=== PATIENT | female | born 1960 | race Caucasian/White ===

== ENCOUNTER 2020-03-14 07:22 | Outpatient (CLI) | payer OTHER, SELFPAY ==
--- NOTE | 2020-03-14 07:34 | MM_ITS ---
WS: [id number] SCREENING DIGITAL MAMMOGRAM WITH CAD HISTORY: SCREENING COMPARISON: 05/20/2019, 01/29/2019, 01/18/2015 Bilateral CC and MLO views submitted. Computer aided detection analyzed. Breast composition: The breasts are heterogeneously dense, which may obscure small masses. 10 mm asym metry in the medial LEFT breast in the CC projection only. Otherwise the asymmetries are stable. No c alcification. LEFT breast: Spot compression views (CC ). True ML. Ultrasound to follow if abnormality persists. MM/[place] [id number] IMPRESSION: BI-RADS: 0-Incomplete: Need additional imaging evaluation FOLLOW UP: Need Additional Imaging
== END 2020-03-14 07:23 | disposition home or self-care (01) ==
LOC: RADSHAW 07:28
PROVIDERS: PCP Internal Medicine; Visit Provider Nurse Practitioner Women's Health
DX: Z12.31 Encounter for screening mammogram for malignant neoplasm of breast (principal); N64.89 Other specified disorders of breast
CPT/HCPCS: 77067

== ENCOUNTER 2020-03-21 14:06 | Outpatient (CLI) | payer OTHER, SELFPAY ==
--- NOTE | 2020-03-21 14:30 | MM_ITS ---
WS: [id number] ADDITIONAL VIEWS LEFT MAMMOGRAM HISTORY: abnormal mammogram-- left breast COMPARISON: 03/14/2020, 05/20/2019, 01/29/2019 and 01/27/2018 Spot compression views LEFT breast in CC projection and true ML submitted. The asymmetry in the medial LEFT breast resolves with additional imaging and compression views. No ad ditional workup necessary. MM/[id number] IMPRESSION: BI-RADS: 2-Benign FOLLOW UP: 1 Year Follow-up
== END 2020-03-21 14:07 | disposition home or self-care (01) ==
LOC: RADSHAW 14:07
PROVIDERS: PCP Internal Medicine; Visit Provider Nurse Practitioner Women's Health
DX: R92.8 Other abnormal and inconclusive findings on diagnostic imaging of breast (principal)
CPT/HCPCS: 77065

== ENCOUNTER 2021-03-16 07:46 | Outpatient (CLI) | payer OTHER, SELFPAY ==
--- NOTE | 2021-03-16 08:00 | MM_ITS ---
WS: [id number] BILATERAL SCREENING DIGITAL MAMMOGRAM WITH CAD HISTORY: Z12.39 - Encounter for other screening for malignant neoplasm... COMPARISON: 03/14/2020, 03/21/2020 and 05/20/2019 Bilateral CC and MLO views submitted. Computer aided detection analyzed. Breast composition: The breasts are heterogeneously dense, which may obscure small masses. No suspici ous masses, microcalcifications or architectural distortion. Asymmetries bilaterally are stable. MM/[id number] IMPRESSION: BI-RADS: 2-Benign FOLLOW UP: 1 Year Follow-up
== END 2021-03-16 07:47 | disposition home or self-care (01) ==
LOC: RADSHAW 07:48
PROVIDERS: PCP Internal Medicine; Visit Provider Nurse Practitioner Women's Health
DX: Z12.31 Encounter for screening mammogram for malignant neoplasm of breast (principal)
CPT/HCPCS: 77067

== ENCOUNTER 2022-03-19 07:34 | Outpatient (CLI) | payer OTHER, SELFPAY ==
--- NOTE | 2022-03-19 07:54 | MM_ITS ---
WS: [email or web address] VIEWS: MLO and CC views both breasts. 3D digital tomosynthesis is also included in this exam. Comparison made with prior exam of 01/27/2018, 03/14/2020, and 03/16/2021.. Findings: There was no sign of mass, architectural distortion or suspicious calcification in either breast. Sta ble appearing nodular densities in both breasts.Heterogeneously dense MM/[place] [id number] Impression: BI-RADS: 2-Benign FOLLOW-UP: 1 Year Follow-up This mammogram was also analyzed by the Computer Aided Detection System R2 Imag e [employer] [place].
== END 2022-03-19 07:35 | disposition home or self-care (01) ==
LOC: RAD 07:35
PROVIDERS: PCP Internal Medicine; Visit Provider Nurse Practitioner Women's Health
DX: Z12.31 Encounter for screening mammogram for malignant neoplasm of breast (principal)
CPT/HCPCS: 77063; 77067

== ENCOUNTER 2023-03-20 07:49 | Outpatient (CLI) | payer OTHER, SELFPAY ==
--- NOTE | 2023-03-20 | MM_ITS ---
WS: [id number] BILATERAL SCREENING DIGITAL TOMOSYNTHESIS MAMMOGRAM WITH CAD HISTORY: SCREENING COMPARISON: 01/29/2019, 03/19/2022, 03/16/2021 and 03/14/2020 Bilateral CC and MLO views with tomosynthesis and synthetic mammography submitted. Computer aided det ection analyzed. Breast composition: The breasts are heterogeneously dense, which may obscure small masses. No suspici ous masses, microcalcifications or architectural distortion. Long-term stability of an asymmetry just central to the right nipple. IMPRESSION: MM/[place] [id number] BI-RADS: 2-Benign FOLLOW UP: 1 Year Follow-up
== END 2023-03-20 07:50 | disposition home or self-care (01) ==
PROVIDERS: PCP Internal Medicine; Visit Provider Nurse Practitioner Women's Health
DX: Z12.31 Encounter for screening mammogram for malignant neoplasm of breast (principal)
CPT/HCPCS: 77063; 77067

== ENCOUNTER 2024-03-23 08:21 | Outpatient (CLI) | payer MEDICARE, OTHER, SELFPAY ==
--- NOTE | 2024-03-23 08:27 | MM_ITS ---
WS: [id number] BILATERAL 3D TOMOSYNTHESIS DIGITAL SCREENING MAMMOGRAPHY WITH CAD CLINICAL INFORMATION: SCREEN HISTORY: Screening mammogram. No current complaints. COMPARISON: 2022 TECHNIQUE: Bilateral CC and MLO views. FINDINGS: The breasts are composed of heterogeneous fibroglandular density tissue, which can limit the detectio n of small underlying mass lesions. No suspicious mass, asymmetry, calcifications, or architectural d istortion. No evidence of malignancy. A few incidental punctate calcifications. MM/[place] [id number] IMPRESSION: BI-RADS: 2-Benign FOLLOW UP: 1 Year Follow-up Recommend return to annual screening mammography.
== END 2024-03-23 08:22 | disposition home or self-care (01) ==
LOC: RAD 08:21
PROVIDERS: PCP Internal Medicine; Visit Provider Nurse Practitioner Women's Health
DX: Z12.31 Encounter for screening mammogram for malignant neoplasm of breast (principal)
CPT/HCPCS: 77063; 77067

== ENCOUNTER → 2024-03-31 08:18 | Outpatient (BNVA) | payer MEDICARE, OTHER, SELFPAY | PROVIDERS: PCP Internal Medicine; Visit Provider Nurse Practitioner Family | DX: L57.0 Actinic keratosis (principal); L82.1 Other seborrheic keratosis; D18.01 Hemangioma of skin and subcutaneous tissue; L81.4 Other melanin hyperpigmentation | CPT/HCPCS: 17000; 99213 ==

== ENCOUNTER 2024-04-30 13:27 | Outpatient (CLI) | payer MEDICARE, OTHER, SELFPAY ==
--- NOTE | 2024-04-30 13:30 | XR_ITS ---
WS: [email or web address] DEXA (DUAL ENERGY X-RAY ABSORPTIOMETRY) Bone mineral density was performed using a [employer] machine. HISTORY: Z78.0 - Asymptomatic menopausal state COMPARISON: None available. Lumbar spine BMD (L1-L4): 1.090 g/cm2 T score: -0.8 Z score: 1.1 Total hip BMD: Left: 0.907 g/cm2. T score: -0.8 Z score: 0.6 Right: 0.898 g/cm2. T score: -0.9 Z score: 0.5 10 year probability of a major osteoporotic fracture is 14.1%. Compared to the prior study from 11/24/2018. Lumbar spine bone mineral density has increased by 0.5%. Bilateral hips bone mineral density has increased by 0.8%. XR/XR DEXA axial skeleton* [id number] IMPRESSION: NORMAL BONE MINERAL DENSITY based upon the WHO classification for females. No significant change in bone mineral density within the hips or lumbar spine s rick the prior study.
== END 2024-04-30 13:28 | disposition home or self-care (01) ==
LOC: RAD 13:28
PROVIDERS: PCP Internal Medicine; Visit Provider Nurse Practitioner Women's Health
DX: Z13.820 Encounter for screening for osteoporosis (principal); Z78.0 Asymptomatic menopausal state
CPT/HCPCS: 77080

== ENCOUNTER 2024-09-08 11:57 | Observation (INO) | payer MEDICARE, OTHER, SELFPAY ==
--- NOTE | 2024-09-01 10:08 | P.ANESASSM_ITS ---
Pre-Anesthetic Assessment Height/Weight: Height 1.57 m Operation Date: 09/08/24 08:45 Proposed Procedures p Anterior Repair Anterior Colporrhaphy(Not Applicable) - Saturnino Hurd MD s Posterior Repair Posterior Colporrhaphy(Not Applicable) - Saturnino Hurd MD s Sling Single Incision Sling 43900, 14537, 51694, N99.3, N81.10, N81.6(Not Applicable) - Saturnino Hurd MD Familial anesthetic complications: PONV (Severe) - TIVA Very sensitive to sedatives - had eyelid surgery and had to have three people help carry her into her house and didn't remember anything until the next day States she kept requesting pain meds after the eyelid surgery, but she wasn't in pain. She says she was just dopey. Was Beta Kevin taken within 24 hours: N/A Was Clonidine taken within 24 hours: N/A Social No alcohol and No tobacco Exam alert, oriented x 3, clear to auscultation bilaterally and regular rate & rhythm Airway Mallampati: Class I Dentition: full Metabolic Thyroid Disease Anesthetic Plan ASA status: 2 Anesthesia: General Risk of > 500 ml blood loss (7ml/kg in children): No Medications/Allergies Home Medications Medication Instructions Recorded Confirmed Last Taken Type epinephrine 0.3 mg/0.3 mL 0.3 mg IM Q10M PRN Anaphylaxis 01/05/20 09/01/24 Unknown History injection, auto-injector bupropion HCl 150 mg tablet,12 hr 150 mg PO DAILY 02/09/22 09/01/24 09/01/24 History sustained-release (Wellbutrin SR) cholecalciferol (vitamin D3) 125 125 mcg PO DAILY 02/09/22 09/01/24 09/01/24 H istory mcg (5,000 unit) capsule estradiol 1 mg tablet 0.5 mg PO DAILY 09/01/24 09/01/24 08/31/24 History levothyroxine 75 mcg tablet 88 mcg PO DAILY 09/01/24 09/01/24 09/01/24 History (Synthroid) Allergies Allergy/AdvReac Type Severity Reaction Status Date / Time erythromycin base Allergy vomiting Verified 09/01/24 09:37 [From Erythrocin] insect venom Allergy bees Verified 09/01/24 09:37 [facility] Anesthesia Medical History Lid retraction of left eye (~03/2024) Dr. Hays Hemorrhoid Hyperlipidemia No pertinent past medical history Neg HX: HTN, DM, DVT/PE PCP:Ramiro Hormone replacement therapy (postmenopausal) Hypothyroidism Hypercholesteremia Osteopenia Surgical History History of bladder surgery (~06/2022) combined with posterior repair. Performed at [facility] in [place], [place] by Dr. Gray History of eye surgery torn retina in both eyes-- uncertain of year H/O: hysterectomy In her 30's for prolapse. TVH. Ovaries surgically spared. Bladder was lifted at this time. Hx of LASIK Family History Grandmother Diabetes Paternal grandmother Family/Other Diabetes Paternal aunt Colon cancer Paternal aunt--- dx age unknown Mother Hyperlipidemia Hypertension Family history of thyroid problem Stroke Sister Family history of thyroid problem Grandfather Heart disease Maternal Denies family history of Ovarian cancer Breast cancer Uterine cancer Social History Smoking and tobacco/nicotine status: never used tobacco/nicotine Data Anesthesia Cardiac Studies: No Data to Display
[2024-09-01 10:29] LABS: Basophils % 0.7 %; Eosinophils # 0.2 10^3/uL (0.0-0.8); Eosinophils % 3.3 %; Lymphocytes # 1.8 10^3/uL (0.8-4.8); Lymphocytes % 30.7 %; Mean Corpuscular HGB Conc 32.8 g/dL (30-55); Mean Corpuscular Hemoglobin 30.5 pg (27-33); Mean Corpuscular Volume 93.1 fl (85-98); Mean Platelet Volume 9.3 fL (7.4-10.4); Monocytes # 0.6 10^3/uL (0.2-0.9); Monocytes % 10.8 %; Neutrophils # 3.17 10^3/uL (1.8-7.7); Neutrophils % 54.2 %; Nucleated Red Blood Cells % 0 %; Platelet Count 283 10^3/cmm (157-399); Red Blood Count 4.62 10^6/uL (3.85-5.65); White Blood Count 5.84 10^3/uL (3.29-11.43)
[2024-09-01 10:30] LABS: Bilirubin Urine Negative (Negative); Blood Urine Negative (Negative); Glucose Urine UA Negative (Normal); Ketones Urine Negative (Negative); Leukocyte Esterase Urine Negative (Negative); Nitrate Urine Negative (Negative); Protein Urine Negative (Negative); Specific Gravity, Urine 1.016 (1.005-1.030); Urine Appearance Clear (CLEAR); Urine Color Yellow (Yellow); Urobilinogen Urine 0.2 mg/dL (Negative); pH Urine 5.5 (5-7)
[2024-09-01 10:35] LABS: Add Urine Microscopic? YES; Bacteria Urine None Seen /hpf; Hyaline Casts Urine 0-4 /lpf; RBC Urine 0-2 /hpf (0-2); Squamous Epithelial Cell Urine 0-5 /hpf (0-5); WBC Urine 0-5 /hpf (0-5)
[2024-09-01 10:49] LABS: Alanine Aminotransferase 26 U/L (0-33); Alkaline Phosphatase 77 U/L (35-105); Anion Gap 16.4 (5-19); Aspartate Amino Transferase 22 U/L (0-32); Blood Urea Nitrogen 17 mg/dL (8-23); Calcium 9.5 mg/dL (8.5-10.5); Carbon Dioxide 24 mmol/L (22-29); Chloride 104 mmol/L (98-107); Globulin 2.7 g/dL (1.3-4.6); Glucose 101 mg/dL (65-115); Osmolality Calculated 292 mOsm/kg (285-295); Potassium 4.4 mmol/L (3.5-5.1); Sodium 140 mmol/L (136-145); Total Bilirubin 0.2 mg/dL (0.15-1.2); Total Protein 6.7 g/dL (6.6-8.7)
[2024-09-08] VITALS (21 sets, daily range): BP systolic 94–156; BP diastolic 52–103; PULSE 64–95; RESP 14–37; TEMP 36.3–36.8; O2SAT 90–98; BMI 23.8
[2024-09-08] MEDS: metroNIDAZOLE IV 500 MG/100 ML PREMIX 100 MG IV (08:47)
[2024-09-08] MEDS: sodium chloride 0.9% 1,000 ML 30 ML IV (08:47)
[2024-09-08] MEDS: enoxaparin 30 mg/0.3 mL Syringe SUBCUT (08:48)
[2024-09-08] MEDS: scopolamine 1 mg PATCH 1 PATCH TRANSDERMA (08:53)
--- NOTE | 2024-09-08 09:02 | P.ANESUD_ITS ---
Pre-Anesthetic Update Pre-Anesthetic Assessment: Date of Surgery/Procedure: 09/08/24 Preop Sandra gnosis: Cystocele, rectocele, vaginal prolapse, mixed incontinence Proposed Procedure: Operation Date: 09/08/24 09:55 Proposed Procedures p Anterior repair(Not Applicable) - Saturnino Hurd MD s Posterior Repair Posterior Colporrhaphy(Not Applicable) - Saturnino Hurd MD s Sling Single Incision Sling 83856, 93958, 91195, N99.3, N81.10, N81.6(Not Applicable) - Saturnino Hurd MD Any changes to Pre-Anesthetic Assessment?: No Last Intake: Intake Last Liquid Date 09/07/24 Last Liquid Time 20:00 Last Solid Date 09/07/24 Last Solid Time 18:15 Vitals: Temperature 98.2 F 09/08/24 08:33 Temperature Source Temporal Artery S can 09/08/24 08:33 Pulse Rate 95 09/08/24 08:33 Respiratory Rate 18 09/08/24 08:33 Blood Pressure 154/103 09/08/24 08:33 Blood Pressure Herlinda n 120 09/08/24 08:33 Pulse Oximetry 98 09/08/24 08:33 Oxygen Delivery Me thod Room Air 09/08/24 08:33 Exam: Pre-Anes Outpt Exam: alert, oriented x 3, clear to auscultation bilaterally and regular rate & rhythm Cardiac Studies: No Data to Display
[2024-09-08] MEDS: ceFAZolin 2,000 mg SDV 2000 MG IVP (09:33)
--- NOTE | 2024-09-08 09:38 | W.PM.OPSUD ---
Surgery/Procedure H&P Update DATE OF PROCEDURE: September 08, 2024 DATE H&P PERFORMED: 08/31/24 H&P UPDATE INFORMATION: I have reviewed H&P completed within last 30 days, I have examined patient prior to procedure and No changes to prior documentation PREOP DIAGNOSIS: Cystocele, rectocele, vaginal prolapse, mixed incontinence PLANNED PROCEDURE: Operation Date: 09/08/24 09:55 Proposed Procedures p Anterior repair(Not Applicable) - Saturnino Hurd MD s Posterior Repair Posterior Colporrhaphy(Not Applicable) - Saturnino Hurd MD s Sling Single Incision Sling 01559, 74456, 31351, N99.3, N81.10, N81.6(Not Applicable) - Saturnino Hurd MD
[2024-09-08] MEDS: lidocaine-epi 2% PF 1:200,000 20 mL SDV INJECTION (10:13)
--- NOTE | 2024-09-08 12:03 | P.OP_ITS ---
Operative Report Date of procedure: September 08, 2024 Pre-op diagnosis: Vaginal vault prolapse Cystocele Rectocele Mixed incontinence Post-op diagnosis: same Procedure done: Anterior colporrhaphy augmented with allograft Mid urethral sling Posterior colporrhaphy Sacrospinous fixation Cystoscopy Surgeon: Saturnino Hurd MD Estimated blood loss (mL): 250 IV fluids (mL): 1,000 Urine output (mL): 100 Procedure: After obtaining informed consent, the patient was taken to the operating room and placed in the supine position, given general anesthesia, and prepped and draped in sterile fashion. The abdomen, vulva and vagina were prepped and draped in a sterile manner. A time out procedure was performed. The anterior vaginal mucosa beneath the midurethra was infiltrated with 2% lidocaine with epinephrine. A vertical midline incision was made beneath the midurethra, nearly 1.5 cm length. Careful submucosal dissection was performed bilaterally up to the interior portion of the inferior pubic ramus. The insertion of adductor longus tendon on the patient?s pubic ramus was identified as reference land vi. Palpated the notch along the internal edge of ischiopubic ramus where the adductor longus tendon and the inferior pubic ramus meet. The Altis single incision sling (SIS) was selected. Then the needle of the SIS inserted aiming at the location of this notch. One of the integrated self-fixating tips place onto the needle by sliding it over the end of the needle. The needle/sling assembly was inserted toward the location of identified reference notch making sure that the flat of the handle is perpendicular to the desired path. The needle was tracked along the posterior surface of the ischiopubic ramus until the midline vi on the mesh is approximately at the midline position under the urethra. The needle was removed and the same was repeated on the contralateral side until the appropriate sling tension under the urethra was achieved ensuring that the mesh lays flat. The needle was removed and vaginal incision was closed in a running interlocking fashion with 2-0 Vicryl. The vaginal mucosa was scored in the midline with the Bovie approximately 1 cm medial to the urethral meatus to 1 cm distal to the vaginal cuff. This vaginal mucosa was then undermined and then incised in the midline with the Metzenbaum scissors. The lateral aspects of the vaginal mucosa were then grasped with the Allis clamps and the vaginal mucosa was then dissected off the underlying fascia with the Metzenbaum scissors. Again, there was noted to be quite a bit of oozing at the incision, which was controlled with cautery. After adequate dissection was performed, bilaterally. A coloplast Dermis allograft was modified at time of application to fit spacea, 3 x 4 cm piece. The Coloplast allograft was placed in front of cystocele ready to be implanted facing the vagina mucosa. Suture is placed at distal end of graft and placed towards vaginal cuff. Final suture is placed on proximal portion of the graft to complete the placement o verlying the bladder. Then Interrupted vertical mattress sutures of 0 Vicryl were used to elevate the cystocele superiorly. The excessive vaginal mucosa was then trimmed with the Metzenbaum scissors and the vaginal mucosa was then reapproximated in the running interlocking fashion with 2-0 Vicryl. A 2% lidocaine with epinephrine solution was infiltrated under the posterior vaginal mucosa midline and into the perineal body. An inverted triangle incision was cut in the perineum. The posterior vaginal wall was opened vertically and midline up to the apex of the rectocele. The cut edges were held and splayed laterally with a series of Allis clamp. The open vaginal mucosa was then dissected laterally with a combination of sharp and blunt dissection, exposing the perirectal fascia. A finger is inserted through the incision in the posterior vaginal mucosa, dissecting out the rectovaginal space (RVS). The right rectal pillar (RRP) is identified. The rectal pillar can be bluntly perforated either with the finger or with the tip of a long Kimberly clamp. A Brecarmenza-Navfrantz retractor is used for exposing the rectovaginal space in order to enter the pararectal space with retraction of the cardinal ligament, vagina, and rectum. Displacing the rectum to the left and the cardinal ligament and ureter anteriorly. A sponge dissector is used to bluntly dissect the sacrospinous ligament removing areolar tissue. The ischial spine was palpated directly, and a area approximately 2 cm medial to the spine was selected for insertion of the Anchorsure transvaginal sacrospinous fixation system. One end of the suture of Anchoresure system inserted through the sacrospinous ligament is placed through the muscular layer of the vagina. In a similar manner, the second suture is placed. The opposite end of the suture in the sacrospinous ligament is left free and held on a small hemostat. Then traction on this suture will draw the vaginal vault directly to the ligament, where a square knot affixes it to the sacrospinous ligament. After the mark anthony stich is tied the second safety stich is tied. Then the colporrhaphy/vaginal repair is carried out in routine fashion. The perirectal fascia was then reapproximated with interrupted #2-0 Vicryl sutures to draw the lateral folds together and tuck the rectocele back. Deep interrupted sutures of #0 Vicryl were used to reapproximate the fibers of the levator ani muscles. The excess vaginal mucosa was trimmed. The posterior vaginal wall was closed with a running locked #0 Vicryl to the hymenal tags. The superficial perineal muscles were closed with running unlocked #0 Vicryl and the perineal skin was closed with running subcuticular #2-0 Vicryl. Then the El catheter was removed and cystoscope was inserted. The bladder was filled with sterile water. Complete evaluation of the bladder mucosa was performed noting no lacerations, dimpling, tears, bleeding of the mucosa or muscular layers. Both ureteral orifices were identified. Prompt excretion of urine from both ureteral orifices was noted. Cystoscope was withdrawn. The El catheter was replaced. Excellent hemostasis was obtained. A vaginal pack is placed overnight as postoperative support for the vaginal tissues after graft placement and closure of vaginal incisions. Sponge, lap, needle, and instrument counts were correct times three. The patient was taken to the recovery room, a wake and in stable condition.
--- NOTE | 2024-09-08 12:09 | W.PM.BPON ---
Date of Procedure: 09/08/24 Surgeon: Saturnino Hurd MD Supervisor Sterile Processing(s): Geovany Eaton MD Procedure(s) performed: Anterior colporrhaphy augmented with allograft, mid urethral sling, posterior colporrhaphy, sacrospinous fixation, cystoscopy Findings of the procedure(s): Vaginal vault prolapse, cystocele, rectocele Estimated blood loss: 250 Specimen(s) removed: Post-operative diagnosis: S/P Anterior colporrhaphy augmented with allograft, mid urethral sling, posterior colporrhaphy, sacrospinous fixation, cystoscopy
--- NOTE | 2024-09-08 12:15 | ANE.PACU2 ---
Inpatient post-anesthesia follow up: Airway intact: Yes Vital signs: Temperature 97.4 F Pulse Rate 73 Respiratory Rate 26 Blood Pressure 116/55 Pulse Oximetry 93 Oxygen Delivery Me thod Room Air Oxygen Flow Rate 8 Fraction of Inspir ed Oxygen Hydration adequate: Yes Nausea and vomiting: No Pain level: 1 Mental status: Baseline
--- NOTE | 2024-09-08 13:31 | PC.NURSE ---
1323 - ERNESTO Alex notified of pt having vaginal packing - accepted into room OB 11 with Tiny Vila RN Bp 126/78 - pulse 76 - no distress noted to pt
[2024-09-08] MEDS: ketorolac 30 mg/mL INJ IVP ×2 (14:11→19:47)
[2024-09-08] MEDS: dextrose 5%-lactated ringers 1,000 ML 125 ML IV ×2 (14:12→22:17)
[2024-09-08] MEDS: HYDROcodone-acetaminophen 5-325 mg Tablet PO (14:12)
[2024-09-08] MEDS: ondansetron 2 mg/ML SDV 2 mL 4 MG IVP ×2 (14:20→18:27)
[2024-09-08] MEDS: HYDROcodone-APAP 7.5-325 mg/15 mL UDC PO (18:03)
[2024-09-08] MEDS: docusate sodium 100 mg Capsule PO (18:03)
[2024-09-08] MEDS: simethicone 80 mg Chew PO (19:47)
[2024-09-09] MEDS: ketorolac 30 mg/mL INJ IVP (02:25)
[2024-09-09 05:00] VITALS: BP 104/61; PULSE 78; RESP 18; TEMP 36.5; O2SAT 93
--- NOTE | 2024-09-09 06:06 | PC.NURSE ---
Vaginal packing removed. Patient tolerated procedure well. Minimal bleeding noted.
[2024-09-09 06:21] LABS: Mean Corpuscular HGB Conc 33.1 g/dL (30-55); Mean Corpuscular Volume 93.5 fl (85-98); Mean Platelet Volume 9.7 fL (7.4-10.4); Platelet Count 210 10^3/cmm (157-399); Red Cell Distribution Width 13.2 % (12.1-15.1); White Blood Count 11.28 10^3/uL (3.29-11.43)
[2024-09-09] MEDS: cholecalciferol (vitamin D3) 5,000 unit Tablet 5000 UNIT PO (08:15)
[2024-09-09] MEDS: docusate sodium 100 mg Capsule PO (08:15)
[2024-09-09] MEDS: buPROPion SR (12 HR) 150 mg Tablet PO (08:16)
[2024-09-09] MEDS: levothyroxine 88 mcg Tablet PO (08:16)
[2024-09-09] MEDS: acetaminophen 325 mg Tablet 650 MG PO (08:16)
--- NOTE | 2024-09-09 11:15 | PM.OBGYDC ---
Discharge Providers DEVELOPMENTAL TRAINING COUNSELOR Date of Admission: 09/08/24 11:57 Date of Discharge: 09/09/24 Attending Provider at Admission: Saturnino Hurd MD Attending Provider at Discharge: Saturnino Hurd MD Primary Care Provider: Berto Mckeon DO Reason for Visit Reason for Visit: N81.6 Hospital Course Hospital Course Mrs. Melendrez 64-year-old female with a history of vaginal vault prolapse with cystocele and rectocele and associated mixed urinary incontinence. Admitted for planned anterior colporrhaphy augmented with allograft, mid urethral sling, posterior colporrhaphy, and sacrospinous fixation. The procedures were performed without complication. Overnight observation was uneventful. She is afebrile and hemodynamically stable postoperative day 1. Tolerating diet well. Ambulating without difficulty. She was counseled regarding pelvic rest for 6 weeks (no sex, no tampons, no vaginal douches). Return to the emergency room if any fever, increased bleeding or pain. Physical Exam Narrative: GA: Alert and oriented ?3. HEENT: WNL. Heart: Regular rate and rhythm. Lungs: Clear to auscultation bilaterally. Abdomen: Bowel sounds present, nontender. NUCLEAR PLANT OPERATOR: spotting bleeding. Extremities: No edema, no cyanosis, no calves pain. Urinary Catheter Management: El: Cath Placed During This Visit: yes Urinary Catheter Date of Insertion: 09/08/24 Urinary Catheter Time of Insertion: 09:59 History History History 3 Term 3 0 Miscarriages/Ectopic 0 Living Children 3 Discharge Data Studies Completed and Pending Laboratory Results WBC 11.28 10^3/uL (3.29-11.43) 09/09/24 06:00 RBC 3.10 10^6/uL (3.85-5.65) L 09/09/24 06:00 Hgb 9.60 g/dL (11.27-16.99) L 09/09/24 06:00 Hct 29.0 % (36-47) L 09/09/24 06:00 MCV 93.5 fl (85-98) 09/09/24 06:00 MCH 31.0 pg (27-33) 09/09/24 06:00 MCHC 33.1 g/dL (30-55) 09/09/24 06:00 RDW 13.2 % (12.1-15.1) 09/09/24 06:00 Plt Count 210 10^3/cmm (157-399) 09/09/24 06:00 MPV 9.7 fL (7.4-10.4) 09/09/24 06:00 Neut % (Auto) 54.2 % 09/01/24 10:00 Lymph % (Auto) 30.7 % 09/01/24 10:00 Union % (Auto) 10.8 % 09/01/24 10:00 Eos % (Auto) 3.3 % 09/01/24 10:00 Baso % (Auto) 0.7 % 09/01/24 10:00 Neut # (Auto) 3.17 10^3/uL (1.8-7.7) 09/01/24 10:00 Lymph # (Auto) 1.8 10^3/uL (0.8-4.8) 09/01/24 10:00 Union # (Auto) 0.6 10^3/uL (0.2-0.9) 09/01/24 10:00 Eos # (Auto) 0.2 10^3/uL (0.0-0.8) 09/01/24 10:00 Baso # (Auto) 0.0 10^3/uL (0.0-0.1) 09/01/24 10:00 Nucleated RBC % (auto) 0 % 09/01/24 10:00 Nucleated RBCs # 0.0 /100WBC 09/01/24 10:00 Sodium 140 mmol/L (136-145) 09/01/24 10:00 Potassium 4.4 mmol/L (3.5-5.1) 09/01/24 10:00 Chloride 104 mmol/L (98-107) 09/01/24 10:00 Carbon Dioxide 24 mmol/L (22-29) 09/01/24 10:00 Anion Gap 16.4 (5-19) 09/01/24 10:00 BUN 17 mg/dL (8-23) 09/01/24 10:00 Creatinine 0.7 mg/dL (0.5-0.9) 09/01/24 10:00 GFR Calculation 84.0 mL/min (90-130) L 09/01/24 10:00 Glucose 101 mg/dL (65-115) 09/01/24 10:00 Calculated Osmolality 292 mOsm/kg (285-295) 09/01/24 10:00 Calcium 9.5 mg/dL (8.5-10.5) 09/01/24 10:00 Total Bilirubin 0.2 mg/dL (0.15-1.2) 09/01/24 10:00 AST 22 U/L (0-32) 09/01/24 10:00 ALT 26 U/L (0-33) 09/01/24 10:00 Alkaline Phosphatase 77 U/L (35-105) 09/01/24 10:00 Total Protein 6.7 g/dL (6.6-8.7) 09/01/24 10:00 Albumin 4.0 g/dL (3.5-5.2) 09/01/24 10:00 Globulin 2.7 g/dL (1.3-4.6) 09/01/24 10:00 Urine Color Yellow (Yellow) 09/01/24 10:05 Urine Appearance Clear (CLEAR) 09/01/24 10:05 Urine pH 5.5 (5-7) 09/01/24 10:05 Ur Specific [place] 1.016 (1.005-1.030) 09/01/24 10:05 Urine Protein Negative (Negative) 09/01/24 10:05 Urine Glucose (UA) Negative (Normal) 09/01/24 10:05 Urine Ketones Negative (Negative) 09/01/24 10:05 Urine Blood Negative (Negative) 09/01/24 10:05 Urine Nitrate Negative (Negative) 09/01/24 10:05 Urine Bilirubin Negative (Negative) 09/01/24 10:05 Urine Urobilinogen 0.2 mg/dL (Negative) 09/01/24 10:05 Ur Leukocyte Esterase Negative (Negative) 09/01/24 10:05 Urine RBC 0-2 /hpf (0-2) 09/01/24 10:05 Urine WBC 0-5 /hpf (0-5) 09/01/24 10:05 Ur Squamous Epith Cells 0-5 /hpf (0-5) 09/01/24 10:05 Amorphous Sediment Not Reportable 09/01/24 10:05 Urine Bacteria None seen /hpf (NONE) 09/01/24 10:05 Hyaline Casts 0-4 /lpf H 09/01/24 10:05 Blood Type A Positive 09/08/24 08:30 Rho(D) Type Rh positive 09/08/24 08:30 Antibody Screen Negative 09/08/24 08:30 Vitals Last Vital Signs Temp 97.7 F 09/09/24 05:00 Pulse 78 09/09/24 05:00 Resp 18 09/09/24 05:00 BP 104/61 09/09/24 05:00 Pulse Ox 93 09/09/24 05:00 O2 Del Method Room Air 09/09/24 05:00 O2 Flow Rate 2 09/08/24 17:32 Results Labs OB ([facility]): Blood Type A Positive 09/08/24 Antibody Screen Negative 09/08/24 Hct 29.0 % (36-47) L 09/09/24 Hgb 9.60 g/dL (11.27-16.99) L 09/09/24 Rho(D) Type Rh positive 09/08/24 Plt Count 210 10^3/cmm (157-399) 09/09/24 Discharge Plan Discharge Patient Disposition: Home Condition: Stable Prescriptions: New acetaminophen 325 mg capsule 325 mg PO Q4H PRN (Reason: fever or pain) Qty: 60 0RF docusate sodium [Colace] 100 mg capsule 100 mg PO BID Qty: 60 0RF ferrous sulfate [Iron (ferrous sulfate)] 325 mg (65 mg iron) tablet 325 mg PO BID Qty: 30 0RF ibuprofen 800 mg tablet 800 mg PO TID PRN (Reason: pain) Qty: 60 0RF metronidazole 500 mg tablet 500 mg PO BID 14 Days Qty: 28 0RF nitrofurantoin macrocrystal 100 mg capsule 100 mg PO BID 7 Days Qty: 14 0RF Rx Instructions: must administer with a meal/food Continued bupropion HCl [Wellbutrin SR] 150 mg tablet sustained-release 12 hr 150 mg PO DAILY cholecalciferol (vitamin D3) 125 mcg (5,000 unit) capsule 125 mcg PO DAILY epinephrine 0.3 mg/0.3 mL auto-injector 0.3 mg IM Q10M PRN (Reason: Anaphylaxis) Rx Instructions: for 2 doses levothyroxine [Synthroid] 75 mcg tablet 88 mcg PO DAILY estradiol 1 mg tablet 0.5 mg PO DAILY Discharge Orders: Discharge Order (Routine); Ordered 09/09/24 Ordered By: Saturnino Hurd Referrals: Saturnino Hurd MD [Physician] - 10/22/24 8:30 am Kia Jones APN, WHNP [Nurse Practitioner] - 09/30/24 8:30 am Patient Instructions: Urinary Bladder Suspension (DC), Acute Wound Care (DC), Opioid Safety (DC), Bladder Sling for Women (DC), Anterior Vaginal Repair (DC), OB Discharge Report, OB Food/Drug Interaction Guide, Opioid Safety, Post Anesthesia Care Discharge Attestations DEVELOPMENTAL TRAINING COUNSELOR Time Spent in Discharge Care*: greater than 30 min Coding Level of Care Code Acute Code for Chg Fwd
[2024-09-09 11:45] VITALS: BP 115/67; PULSE 78; RESP 17; TEMP 36.7; O2SAT 98
== END 2024-09-09 11:45 | disposition home or self-care (01) ==
LOC: OBGYN 12:00
PROVIDERS: Admitting Provider Obstetrics & Gynecology; PCP Electrodiagnostic Medicine; Visit Provider Obstetrics & Gynecology
PROC: 0JQC0ZZ Repair Pelvic Region Subcutaneous Tissue and Fascia, Open Approach (ICD-10-PCS; CPT 57240; principal; 2024-09-08 09:55)
PROC: (CPT 57250; 2024-09-08 09:55)
PROC: (CPT 57288; 2024-09-08 09:55)
PROC: (CPT 57282; 2024-09-08 09:55)
PROC: 0TJB8ZZ Inspection of Bladder, Via Natural or Artificial Opening Endoscopic (ICD-10-PCS; CPT 52000; 2024-09-08 09:55)
DX: N81.10 Cystocele, unspecified (principal); N81.6 Rectocele; N39.46 Mixed incontinence; E78.5 Hyperlipidemia, unspecified; E03.9 Hypothyroidism, unspecified
CPT/HCPCS: 57260; 57288; 57282; 36415; 51798; 80053; 81001; 85025; 85027; 86850; 86900; 96374; A4216; C1713; C1762; G0378; J0690; J1100; J1200; J1650; J1885; J2250; J2405; J2704; J2710; J3010; J3490; J7030; J7121

== ENCOUNTER 2024-11-10 14:54 | Outpatient (RCR) | payer MEDICARE, OTHER, SELFPAY | END 2024-12-02 23:59 | disposition home or self-care (01) | LOC: SPT 14:54 | PROVIDERS: Visit Provider Obstetrics & Gynecology | DX: N99.3 Prolapse of vaginal vault after hysterectomy (principal); Z48.816 Encounter for surgical aftercare following surgery on the genitourinary system | CPT/HCPCS: 97110; 97161; 97530 ==

== ENCOUNTER 2024-12-03 05:00 | Outpatient (RCR) | payer MEDICARE, OTHER, SELFPAY | END 2025-01-02 23:55 | disposition home or self-care (01) | LOC: SPT 05:00 | PROVIDERS: Visit Provider Obstetrics & Gynecology | DX: N99.3 Prolapse of vaginal vault after hysterectomy (principal) | CPT/HCPCS: 97110 ==

== ENCOUNTER 2025-01-03 05:00 | Outpatient (RCR) | payer MEDICARE, OTHER, SELFPAY | END 2025-02-01 23:59 | disposition home or self-care (01) | LOC: SPT 05:00 | PROVIDERS: Visit Provider Obstetrics & Gynecology | DX: N99.3 Prolapse of vaginal vault after hysterectomy (principal) | CPT/HCPCS: 97110 ==

== ENCOUNTER 2025-03-24 07:52 | Outpatient (CLI) | payer MEDICARE, OTHER, SELFPAY ==
--- NOTE | 2025-03-24 07:57 | MM_ITS ---
WS: [id number] BILATERAL SCREENING DIGITAL TOMOSYNTHESIS MAMMOGRAM WITH CAD HISTORY: SCREENING COMPARISON: 03/23/2024, 03/20/2023, 03/19/2022 Bilateral CC and MLO views with tomosynthesis and synthetic mammography submitted. Computer aided detection analyzed. Breast composition: The breasts are heterogeneously dense, which may obscure small masses. No suspicious masses, microcalcifications or architectural distortion. MM/MM scr BI tomosynthesis [id number] IMPRESSION: BI-RADS: 2 - Benign FOLLOW UP: 1 Year Follow-up
== END 2025-03-24 07:53 | disposition home or self-care (01) ==
LOC: RAD 07:53
PROVIDERS: Visit Provider Nurse Practitioner Women's Health
DX: Z12.31 Encounter for screening mammogram for malignant neoplasm of breast (principal); R92.333 Mammographic heterogeneous density, bilateral breasts
CPT/HCPCS: 77063; 77067

== ENCOUNTER → 2025-03-25 13:48 | Outpatient (BNVA) | payer MEDICARE, OTHER, SELFPAY | PROVIDERS: Visit Provider Nurse Practitioner Family | DX: L82.1 Other seborrheic keratosis (principal); L81.4 Other melanin hyperpigmentation; L57.8 Other skin changes due to chronic exposure to nonionizing radiation; D22.5 Melanocytic nevi of trunk | CPT/HCPCS: 99213 ==